=== PATIENT | male | born 1970 | race Caucasian/White ===

== ENCOUNTER 2019-03-16 08:05 | Inpatient (IN) | payer BC ==
[~2019-03-16] VITALS: Ht 170.2 cm; Wt 132.0 kg
[2019-03-16 08:08] VITALS: Ht 170.2 cm; Wt 132.0 kg
--- NOTE | 2019-03-16 08:08 | NUR ---
EKG IN PROGRESS IN [facility]IG[facility].
--- NOTE | 2019-03-16 08:11 | NUR ---
PT WHEELED INTO BED 1 FOR EVAL. PRIMARY RN HAN AT BEDSIDE.
--- NOTE | 2019-03-16 08:15 | NUR ---
PT C/O NONRADIATING ACHING CHEST PAIN SINCE 0300 THIS AM, PT STS HE WAS GETTING READY FOR WORK WHEN IT STARTED, PT DENIES SOB AND/OR ANY EPISODES OF VOMITING, PT DENIES ANY DIZZINESS AND/OR LOC. PT STS HX HTN AND DM, PT AAOX4, RESPS E/U, SKIN PINK DRY AND WARM, NO S/S RESP DISTRESS NOTED, PT SPEAKING FULL CLEAR SENTENCES, PT DENIES ANY RECENT TRAUMA AND/OR INJURY, PT GOWNED AND PLACED ON FULL CM, NSR, PT IN NAD AWAITING MSE WITH AT BEDSIDE
--- NOTE | 2019-03-16 08:17 | NUR ---
LAB AT BEDSIDE
--- NOTE | 2019-03-16 08:20 | NUR ---
MD RODRIGUEZ AT BEDSIDE PERFORMING MSE
[2019-03-16 08:27] LABS: BASOPHIL % 0.7 % (0-2); PLATELET COUNT 196 x10^3mcL (130-400); RED CELL DISTRIBUTION WIDTH 14.6 % (11.5-14.5)
--- NOTE | 2019-03-16 08:27 | NUR ---
PORTABLE CXR AT BEDSIDE
--- NOTE | 2019-03-16 08:33 | NUR ---
MEDICATED PER EMAR.
--- NOTE | 2019-03-16 08:36 | NUR ---
PT INSTRUCTED TO PROVIDE URINE SPECIMEN ISADORA
--- NOTE | 2019-03-16 08:50 | NUR ---
PT AMBULATORY WITH STEADY GAIT TO RESTROOM
[2019-03-16] MEDS ORDERED: BENAZEPRIL HYDR40 M1 PO (08:52)
[2019-03-16] MEDS ORDERED: NOR10 PO (08:52)
[2019-03-16] MEDS ORDERED: METFORMIN HYDR500 M1 PO (08:52)
--- NOTE | 2019-03-16 08:54 | NUR ---
PT RESTING IN POSITION OF COMFORT, RESPS E/U, NSR ON CM, PT DENIES PAIN AT THIS TIME STATING "NO IT HASD GONE AWAY" AT BEDSIDE, CALL LIGHT WITHIN REACH, WILL CONTINUE TO MONITOR
[2019-03-16 09:02] LABS: CALCIUM 8.5 mg/dL (8.5-10.1); CARBON DIOXIDE 26.9 mmol/L (21-32); CREATININE SERUM 1.5 mg/dL (0.7-1.3); POTASSIUM SERUM 4.4 mmol/L (3.5-5.1)
[2019-03-16 09:07] LABS: ALBUMIN 3.7 g/dL (3.4-5.0); BILIRUBIN TOTAL 0.6 mg/dL (0.20-1.00); TOTAL PROTEIN, SERUM 7.8 g/dL (6.4-8.2)
[2019-03-16 09:50] LABS: UA SPECIFIC GRAVITY 1.025 (1.005-1.035); microscopic required? YES; urine erythrocyte NEGATIVE (NEGATIVE)
--- NOTE | 2019-03-16 09:55 | NUR ---
PT RESTING IN POSITION OF COMFORT, TALKING WITH HIS AT BEDSIDE, RESPS E/U, VSS, NSR ON CM
--- NOTE | 2019-03-16 10:13 | NUR ---
PER MD RODRIGUEZ VERBAL ORDER OKAY TO ORDER PT CARDIAC DIET LUNCH, LUNCH ORDERED
--- NOTE | 2019-03-16 10:45 | NUR ---
REPORT GIVEN TO ADAL COLEMAN WHO IS RESUMING CARE OF PT AT THIS TIME
[2019-03-16 11:48] LABS: CHOLESTEROL/HDL RATIO 7.3
[2019-03-16 11:56] LABS: T3 TOTAL 0.76 ng/mL
[2019-03-16 12:03] VITALS: BP 133/79
[2019-03-16 12:15] LABS: FREE T4 0.92 ng/dL (0.76-1.46); FREE THYROXINE INDEX 2.1 ug/dL (1.4-4.5); T4(THYROXINE) 6.4 ug/dL (4.7-13.3)
[2019-03-16 12:41] LABS: AMPHETAMINE QUAL UR NONE DETECTED (See below)
--- NOTE | 2019-03-16 14:34 | NUR ---
AT 1200 - RECEIVED PATIENT FROM ER NURSE. SETTLED IN ROOM, ORIENTED TO SUROUNDINGS AND PLACED ON CARDIAC MONITORING TELE # 23. ADMITTED WITH CHEST PAIN. PATIENT REPORTS THAT CHEST PAIN HAS RESOLVED. NOW C/O HEADACHE. NITRO PATCH REMOVED. HISTORY OBTAINED FROM PATIENT. AT 1215 - BLOOD GLUCOSE LEVEL 156. GIVEN 3 UNITS REGULAR INSULIN PER SLIDING SCALE. DR MEANS AT BEDSIDE. AT 1310 - GIVEN PNEUMOCCOAL VACCINE PER EMAR.
[2019-03-16 16:00] VITALS: BP 138/82
--- NOTE | 2019-03-16 17:25 | NUR ---
PATIENT AMBULATING IN HALLWAY. NO SOB NOTED. NO C/O CHEST PAIN. NASAL SWAB FOR MRSA COLLECTED AND TAKEN TO LAB. LAST BLOOD GLUCOSE LEVEL 156. GIVEN 3 UNITS REGULAR INSULIN PER EMAR.
--- NOTE | 2019-03-16 18:40 | NUR ---
MONITOR SHOWING SINUS RHYTHM; RATE 90'S. NO C/O CHEST PAIN. FAMILY VISIITNG. WILL ENDORSE CARE TO NIGHT NURSE.
--- NOTE | 2019-03-16 19:31 | NUR ---
SHIFT REASSESSMENT DONE.PATIENT ALERT AND ORIENTED.MAKE NEEDS KNOWN,FAMILY AT BEDSIDE,SUPPORTIVE OF CARE.AMBULATORY.MARY PIZARRO.TELE 23 SR.NO CHEST PAIN AT THIS TIME.SKIN INTACT.TRACE EDEMA BLE.CALL LIGHT IN REACH.
--- NOTE | 2019-03-16 21:01 | NUR ---
PATIENT PM MEDS GIVEN WITHOUT ANY INCIDENT.BLOOD SUGAR 190,GIVEN 3 UNITS RISS.
[2019-03-16 21:16] VITALS: BP 148/90
--- NOTE | 2019-03-16 22:43 | NUR ---
WANTING PAIN PILL,SAYS JOSEPH CAR.DO NOT WANT NITRO/GETS HEADACHE OR PAIN SHOT,JUST WANT NORCO POLL.
--- NOTE | 2019-03-17 00:31 | NUR ---
CHECKED AT THIS TIME.SLEEPING,CALL LIGHT IN REACH.
[2019-03-17 05:31] VITALS: BP 150/95
--- NOTE | 2019-03-17 05:59 | NUR ---
I AND O MEASURED.AWAKE,UP IN RESTROOM.VOIDING,SAYS HE HAD BM LAST NIGHT.AM LAB WORKS,BS 151,DECLINE RISS COVERAGE.
[2019-03-17 06:28] LABS: BASOPHIL % 0.6 % (0-2); PLATELET COUNT 188 x10^3mcL (130-400); RED CELL DISTRIBUTION WIDTH 14.2 % (11.5-14.5)
[2019-03-17 06:43] LABS: CALCIUM 8.8 mg/dL (8.5-10.1); CARBON DIOXIDE 25.8 mmol/L (21-32); CHLORIDE SERUM 102 mmol/L (98-107); CREATININE SERUM 1.2 mg/dL (0.7-1.3); GFR1 > 60 mL/min; GLUCOSE SERUM 165 mg/dL (74-106); MAGNESIUM 1.4 mg/dL (1.8-2.4); PHOSPHOROUS 3.4 mg/dL (2.5-4.9); POTASSIUM SERUM 4.1 mmol/L (3.5-5.1); SODIUM SERUM 139 mmol/L (136-145)
--- NOTE | 2019-03-17 07:25 | NUR ---
RECEIVED PT FROM PATIENT RELATIONS COORDINATOR. PT AWAKE, ALERT. A/OX4. PT ON ROOM AIR WITH NO RESP DISTRESS NOTED. IV ACCESS RAC, CDI SALINE LOCKED. PT ON TELE 23 DENIES CHEST PAIN AT THIS TIME. PT REPORTS HEADACHE BUT DOES NOT WANT MEDICINE AT THIS TIME. WILL MONITOR. PERIPHERAL PULSES PALPABLE, TRACE EDEMA NOTED TO BLE. ACTIVE BS NOTED. PT REPORTS NO ISSUES WITH ELIMINATION. PT AMBULATORY, SAFETY MEASURES IN PLACE, BED LOW AND LOCKED. CALL LIGHT WITHIN REACH.
[2019-03-17] MEDS ORDERED: LIPI20 PO (07:34)
[2019-03-17 07:52] VITALS: BP 165/106
--- NOTE | 2019-03-17 08:20 | NUR ---
PT BLOOD PRESSURE 165/106 (122), HR 77. DUE MEDICATIONS ADMINISTERED ORDERED.
[2019-03-17 09:55] VITALS: BP 145/86
--- NOTE | 2019-03-17 09:55 | NUR ---
BLOOD PRESSURE RE-CHECK 145/86 (105), HR 80.
--- NOTE | 2019-03-17 10:06 | NUR ---
PT REPORTS HEADACHE, 12/31. TYLENOL ADMINISTERED ORDERED PRN. WILL MONITOR.
--- NOTE | 2019-03-17 11:10 | NUR ---
PT REPORTS RELIEF FROM HEADACHE AFTER TYLENOL ADMINISTRATION. PAIN 2/10 AND TOLERABLE AT THIS TIME.
[2019-03-17 11:50] VITALS: BP 124/77
[2019-03-17 13:27] VITALS: BP 124/77
--- NOTE | 2019-03-17 14:52 | NUR ---
PT RESTING WITH NO ACUTE DISTRESS OR DISCOMFORT NOTED. FAMILY AT BEDSIDE. PT TO BE DISCHARGED TODAY. AWAITING PRESCRIPTION.
--- NOTE | 2019-03-17 15:25 | NUR ---
DISCHARGE INSTRUCTIONS/EDUCATION PROVIDED TO PATIENT. PT TO FOLLOW UP WITH PCP. PT DENIES PAIN AT THIS TIME. PRESCRIPTION PROVIDED FOR ATORVASTATIN, NOTE PROVIDED FOR WORK BY DR MEANS. IV ACCESS REMOVED WITH CATHETER INTACT. NO REDNESS OR SWELLING NOTED. PT TOLERATED WELL. 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 PT TAKEN BY WHEELCHAIR TO [employer]IVATE [employer] FOR DISCHARGE. SAFETY MAINTAINED.
== END 2019-03-17 15:42 | disposition home or self-care (01) | DRG 206 ==
LOC: ED 08:05 → DU 10:14
PROVIDERS: Emergency Medicine; ADMIT Internal Medicine
DX: M94.0 Chondrocostal junction syndrome [Tietze] (principal); Z68.42 Body mass index [BMI] 45.0-49.9, adult; I10 Essential (primary) hypertension; E11.65 Type 2 diabetes mellitus with hyperglycemia; E66.01 Morbid (severe) obesity due to excess calories; Z86.718 Personal history of other venous thrombosis and embolism; Z79.01 Long term (current) use of anticoagulants; Z82.49 Family history of ischemic heart disease and other diseases of the circulatory system; Z23 Encounter for immunization; Z79.899 Other long term (current) drug therapy
CPT/HCPCS: 82962; 83880; 84439; 90732; G0378

== ENCOUNTER 2019-03-20 04:23 | Emergency (ER) | payer BC ==
[~2019-03-20] VITALS: Ht 170.2 cm; Wt 131.3 kg
[~2019-03-20 04:23] MED LIST: BENAZEPRIL HYDR40 M1 PO; LIPI20 PO; METFORMIN HYDR500 M1 PO; NOR10 PO
[2019-03-20 04:30] VITALS: Ht 170.2 cm; Wt 131.3 kg
[2019-03-20 06:39] VITALS: BP 150/80
== END 2019-03-20 06:39 | disposition home or self-care (01) ==
LOC: ED 04:23
DX: M25.562 Pain in left knee (principal); M79.89 Other specified soft tissue disorders; I10 Essential (primary) hypertension; E11.9 Type 2 diabetes mellitus without complications; E78.00 Pure hypercholesterolemia, unspecified
CPT/HCPCS: J1885; Q0092

== ENCOUNTER 2019-03-22 21:28 | Emergency (ER) | payer BC ==
[~2019-03-22] VITALS: Ht 167.6 cm; Wt 131.5 kg
[2019-03-22 21:42] VITALS: Ht 167.6 cm; Wt 131.5 kg
[2019-03-22 22:52] LABS: BASOPHIL % 0.5 % (0-2); PLATELET COUNT 236 x10^3mcL (130-400)
[2019-03-22 23:07] LABS: CALCIUM 8.8 mg/dL (8.5-10.1); CARBON DIOXIDE 25.7 mmol/L (21-32); CREATININE SERUM 1.8 mg/dL (0.7-1.3); POTASSIUM SERUM 4.7 mmol/L (3.5-5.1)
[2019-03-22 23:21] LABS: ALBUMIN 3.6 g/dL (3.4-5.0); BILIRUBIN TOTAL 0.6 mg/dL (0.20-1.00); T4(THYROXINE) 7.4 ug/dL (4.7-13.3); TOTAL PROTEIN, SERUM 7.6 g/dL (6.4-8.2); URIC ACID 10.4 mg/dL (3.5-7.2)
[2019-03-23 02:06] VITALS: BP 128/85
== END 2019-03-23 02:06 | disposition home or self-care (01) ==
LOC: ED 21:28
PROVIDERS: Emergency Medicine
DX: M25.562 Pain in left knee (principal); R22.42 Localized swelling, mass and lump, left lower limb; M54.16 Radiculopathy, lumbar region; G31.89 Other specified degenerative diseases of nervous system; E11.9 Type 2 diabetes mellitus without complications; I10 Essential (primary) hypertension; E78.00 Pure hypercholesterolemia, unspecified; E66.01 Morbid (severe) obesity due to excess calories; Z68.42 Body mass index [BMI] 45.0-49.9, adult
CPT/HCPCS: 36415; J1100; J1885; Q0092